=== PATIENT | male | born 1950 | race African-American/Black ===

== ENCOUNTER 2019-03-13 11:27 | Inpatient (IN) ==
[2019-03-13 11:56] LABS: BASO# 0.04 X1000 (0.0-0.2); BASO% 0.3 % (0.0-0.8); EOS# 0.06 X1000 (0.0-0.7); EOS% 0.4 % (0.0-10.0); HEMATOCRIT 45.8 % (42.0-52.0); HEMOGLOBIN 14.6 g/dL (14.0-18.0); IMM GRAN# 0.04 X1000 (0.0-0.04); IMM GRAN% 0.3 % (0.0-0.5); LYMPH# 2.72 X1000 (1.2-3.4); LYMPH% 17.6 % (20.5-51.1); MCH 25.7 PG (27-31); MCHC 31.9 g/dL (33-37); MCV 80.8 FL (81-99); MONO# 1.22 X1000 (0.11-0.59); MONO% 7.9 % (1.7-9.3); MPV 11.9 FL (7.4-10.4); NEUT# 11.37 X1000 (1.4-6.5); NEUT% 73.5 % (42.2-75.2); PLT 174 X1000 (130-400); RBC 5.67 XMIL (4.7-6.1); RDW 15.4 % (11.5-14.5); WBC 15.45 X1000 (4.8-10.8)
[2019-03-13 11:59] LABS: BE -0.4 mmoll (-3.0-3.0); BLOOD TYPE ARTERIAL; HCO3-(ACT) 24.3 mmoll (20.0-26.0); METHB 1.2 % (0.0-1.5); O2(CT) 18.1 mL/dL (15.0-23.0); PCO2(98.6) 34 mmHg (35-45); SAMPLE BLOOD; SAO2 89.3 % (95.0-100.0); pH(98.6) 7.44 (7.35-7.45)
--- NOTE | 2019-03-13 12:08 | EKG Report ---
Test Performed on : 03/13/2019 11:50:52 AM Test Reason : O2 sat 87% Blood Pressure : / mmHG Vent. Rate : 085 BPM Atrial Rate : 085 BPM P-R Int : 176 ms QRS Dur : 084 ms QT Int : 340 ms P-R-T Axes : -10 023 224 degrees QTc Int : 404 ms Sinus rhythm. with premature atrial complexes. in a pattern of bigeminy. T wave abnormality, consider lateral ischemia Abnormal ECG No previous ECGs available Unconfirmed Result
[2019-03-13 12:12] LABS: AGAP 10; ALBUMIN 3.9 g/dL (3.5-5.0); ALKALINE PHOSPHATASE 136 U/L (32-122); BUN 10 mg/dL (8-22); CHLORIDE 103 mmol/L (98-107); COSMO 273; CREATININE 1.1 mg/dL (0.7-1.2); ESTIMATED GFR > 60; GLUCOSE 106 mg/dL (70-104); GOT 19 U/L (10-34); GPT 26 U/L (10-44); POTASSIUM 3.8 mmol/L (3.5-5.1); SODIUM 137 mmol/L (136-145); TCO2 24 mmol/L (25-35); TOTAL PROTEIN 8.3 g/dL (6.3-8.3)
[2019-03-13 12:18] LABS: O2HB 85.9 % (95.0-99.0); PO2(98.6) 47 mmHg (60-100)
[2019-03-13 12:19] LABS: ALLEN TEST YES; MODALITY ROOM AIR
--- NOTE | 2019-03-13 13:30 | Diag Imaging Result Doc PS360 ---
EXAM: CHEST-2 VIEWS INDICATION: cough o2sat on ra 87% TECHNIQUE: 2 views COMPARISON: 02/21/2013 FINDINGS: Inspiration is suboptimal. There is subsegmental atelectasis and/or infiltrate at the lung bases, more prominent on the left. There is no discrete pleural fluid collection or pneumothorax. The cardiomediastinal silhouette and central vasculature are grossly unremarkable. IMPRESSION: Bibasilar subsegmental atelectasis and/or infiltrate, more prominent on the left. Electronically signed by Luis Mckinley 03/13/2019 1:28 PM
--- NOTE | 2019-03-13 13:37 | Diag Imaging Result Doc PS360 ---
EXAM: CT ANGIOGRM PULMONARY ARTERIES INDICATION: chest pain TECHNIQUE: This exam was performed using automated exposure control, adjustment of mA or kV according to patient size, and/or use of iterative reconstruction technique. Thin section axial images and 3-D MIPS were obtained. COMPARISON: 02/11/2013 FINDINGS: There is excessive respiratory motion artifact and the bolus is slightly suboptimal, which may obscure small pulmonary emboli. However, there is clearly a filling defect involving a small branch of the right pulmonary artery in the right lower lobe consistent with a small pulmonary embolus. There is a more questionable filling defect seen in a branch of the left pulmonary artery leading to the left lower lobe. There may be other small emboli that are obscured by motion artifact. However, the clot burden is probably light. There is no evidence of aortic dissection or aneurysm. There is no evidence of cardiomegaly. There are small shotty mediastinal lymph nodes. No significant lymphadenopathy is appreciated. There is subsegmental atelectasis at both lung bases, worse on the left. Superimposed pneumonia at the left lung base is also possible. It would also be difficult to exclude a pulmonary infarct among the consolidation at the left lung base. There is no pleural fluid collection and no pneumothorax. Limited views of the upper abdomen are essentially unremarkable. IMPRESSION: 1.Limited study due to motion artifact and suboptimal contrast bolus. However, there is at least one acute pulmonary embolism in a small branch of the right lower lobe and possibly others as well. 2.Bibasilar atelectasis with likely superimposed infection and/or pulmonary infarct at the left lung base. The findings were discussed with Nicholas Pham MD at 03/13/2019 1:34 PM and was acknowledged. Electronically signed by Luis Mckinley 03/13/2019 1:35 PM
[2019-03-13] MEDS ORDERED: LOVENOX 1 MG/KG SUBQ SCH (13:45)
[2019-03-13] MEDS ORDERED: LOVENOX SUBQ SCH (14:00)
[2019-03-13] MEDS ORDERED: ZOSYN 3.375 GM in NS 50 ML IV ONE (14:09)
[2019-03-13] MEDS ORDERED: TYLENOL PO ONE (14:10)
[2019-03-13] MEDS ORDERED: TYLENOL ONE (14:12)
[2019-03-13] MEDS ORDERED: ZOFRAN IV PRN (14:15)
[2019-03-13 14:32] LABS: INR 1.14; PROTIME 15.2 Seconds (11.0-16.0)
[2019-03-13 14:33] LABS: PTT 25.9 Seconds (22.3-41.8)
--- NOTE | 2019-03-13 15:51 | Extremity Venous Study ---
EXAM: Venous U/S Bilateral Legs INDICATION: swelling TECHNIQUE: COMPARISON: None. FINDINGS: There is poor compression and limited Doppler flow associated with the mid peroneal vein on the left consistent with DVT. The remaining deep venous system on the left as well as the right lower extremity deep venous system exhibit no discrete filling defects and there is normal Doppler flow, compressibility, and augmentation. The great saphenous veins appear to be patent bilaterally. IMPRESSION: DVT involving the peroneal vein on the left as described. Electronically signed by Luis Mckinley 03/13/2019 3:48 PM
[2019-03-13] MEDS: DUONEB (A & A) INH SCH ×3 (16:01→22:39)
[2019-03-13] MEDS: ZITHROMAX 500 MG/NS 500 MG/250 ML IVPB IV SCH (16:14)
--- NOTE | 2019-03-13 17:01 | HISTORY AND PHYSICAL ---
PRIMARY CARE PHYSICIAN: Dr. Jose L Broussard. CHIEF COMPLAINT: Shortness of breath and cough and congestion over the past few days that progressively worsened. HISTORY OF PRESENT ILLNESS: This is a 68-year-old male who presented to [facility] ER with complaints of shortness of breath, cough and congestion over the past few days, that have progressively worsened. He also stated that he had some abdominal pain around the left upper quadrant. He states this began after he went to [employer] yesterday and had a bowel movement after eating and the pain abdomen began and radiated around to his back. He then became short of breath. His workup in the emergency room showed a white blood cell count of 15.45. D-dimer was 3.16. We did a pulmonary arteriogram that showed limited study due to motion artifact, but however, there is at least 1 acute pulmonary embolism in a small branch of the right lower lobe and possibly others. Also noted some bibasilar atelectasis with likely superimposed infection and/or pulmonary artifact in the left lung base. He also had a white blood cell count of 15.45 and while in the emergency room, he did spike a temperature of 101.7 degrees and his O2 saturation on room air when he arrived was 87%. On 2 L via nasal cannula is now at 94%. So, he will be admitted for further evaluation and treatment. PAST MEDICAL HISTORY: Hypertension and hyperlipidemia. PAST SURGICAL HISTORY: None. FAMILY HISTORY: Reviewed and noncontributory. SOCIAL HISTORY: Currently lives with family. States that he was a former smoker but currently uses smokeless tobacco. Denies any alcohol or illicit drug use. ALLERGIES: He has no known drug allergies. HOME MEDICATIONS: Takes amlodipine/benazepril 10/40, 1 p.o. daily and simvastatin 40 mg p.o. at bedtime. LABORATORY DATA: Showed a white blood cell count of 15.45, hemoglobin 14.6, hematocrit 45.8, platelets of 174,000. PT and INR of 15.2 and 1.14 with a D-dimer of 3.16. ABG with a pH of 7.44, pCO2 34, PO2 47, bicarbonate 24.3, and this room air. Sodium 137, potassium 3.8, chloride 103, CO2 24, BUN of 10, creatinine 1.1 glucose 106. Plasma lactate of 0.9. Chest x-ray showed bibasilar subsegmental atelectasis and/or infiltrate, more prominent on the left. Pulmonary arteriogram showed an impression of limited study due to motion artifact and suboptimal contrast bolus. However, there was at least 1 acute pulmonary embolism in a small branch of the right lower lobe and possibly others as well. Bibasilar atelectasis with likely superimposed infection and/or pulmonary artifact at the left lung base. EKG showed sinus rhythm with PACs in a pattern of bigeminy at 85. REVIEW OF SYSTEMS: He was positive for a subjective fever, chills, body aches. Denied any blurred vision, dizziness. He denied any chest pain. He had a nonproductive cough, shortness of breath, left upper quadrant abdominal pain that radiated around to his back. Denied any nausea, vomiting, constipation, diarrhea, burning or hurting with urination. PHYSICAL EXAMINATION: On arrival he had a temperature of 98.3 degrees, pulse 84, respirations 20, blood pressure 147/82, and was saturating 87% on room air. Currently he is saturating 94% on 2 L. He did spike a fever in the emergency room of 101.7 also. GENERAL: This is a 68-year-old male who is lying in the bed. Answers questions appropriately. HEENT: Normocephalic, atraumatic. Normal ENT inspection. Oropharynx and nares are clear. EYES: Pupils are equal, round, and reactive to light accommodation. Extraocular movements are intact. NECK: Normal inspection, normal range of motion. LUNGS: With crackles and decreased breath sounds bilaterally. Equal lung expansion. Chest wall movement noted. O2 via nasal cannula currently in use. HEART: Regular rate and rhythm. No murmurs, rubs, or gallops. ABDOMEN: Soft, nontender, nondistended. Bowel sounds are present in all four quadrants. MUSCULOSKELETAL: He had 5/5 strength x4 extremities. NEUROLOGICAL: The cranial nerves 2-12 appear grossly intact. ASSESSMENT: 1. Acute pulmonary emboli. 2. Bilateral pneumonia. 3. Leukocytosis. 4. Acute respiratory failure secondary to #1 and #2. 5. Hypertension history. PLAN: 1. He is admitted to the medical unit at [facility], placed on telemetry, O2 per protocol. Healthy heart diet. We will do a hypercoagulable workup. Blood cultures x 2 are pending. We will do serial plasma lactate. 2. He is on DuoNeb q.4 hours, Rocephin 1 gram IV q.24, azithromycin 500 IV q.24. 3. Continue home medications as previously identified. Place on Lovenox 1 mg/kg subcutaneous q.12 hour. 4. Further orders after seen by attending. Dictated by HUMZA Willard for Sharan Dominguez MD cc: HUMZA Willard MD Wayne E. Thomas, MD
[2019-03-13] MEDS: ZOCOR PO SCH (21:39)
[2019-03-13] MEDS: ROCEPHIN 1 GM in NS 50 ML IV SCH (21:40)
[2019-03-14] MEDS ORDERED: NORCO-7.5 PO PRN (01:18)
[2019-03-14] MEDS: LOVENOX SUBQ SCH ×2 (01:54→14:45)
[2019-03-14 02:42] LABS: BILIRUBIN URINE NEGATIVE (NEGATIVE); BLOOD URINE NEGATIVE (NEGATIVE); CLARITY CLEAR (CLEAR); COLOR YELLOW; GLUCOSE URINE NEGATIVE (NEGATIVE); KETONE URINE NEGATIVE (NEGATIVE); LEUKOCYTES URINE NEGATIVE (NEGATIVE); NITRITE URINE NEGATIVE (NEGATIVE); PH URINE 6.5; PROTEIN URINE TRACE mg/dL (NEGATIVE); SP GRAVITY URINE 1.015; UROBILINOGEN URINE 1 mg/dL
[2019-03-14 02:48] LABS: URINE BACTERIA 1+ /HFP; URINE EPITHELIAL CELLS <10 /HPF (<10); URINE RBC <10 /HPF (<10); URINE WBC <10 /HPF (<10)
[2019-03-14 02:49] LABS: URINE SOURCE CLEAN CATCH
[2019-03-14] MEDS: DUONEB (A & A) INH SCH ×6 (04:09→22:39)
[2019-03-14 06:54] LABS: BASO# 0.04 X1000 (0.0-0.2); BASO% 0.3 % (0.0-0.8); EOS# 0.03 X1000 (0.0-0.7); EOS% 0.2 % (0.0-10.0); HEMATOCRIT 41.4 % (42.0-52.0); HEMOGLOBIN 12.9 g/dL (14.0-18.0); IMM GRAN# 0.03 X1000 (0.0-0.04); IMM GRAN% 0.2 % (0.0-0.5); LYMPH# 3.37 X1000 (1.2-3.4); LYMPH% 24.6 % (20.5-51.1); MCH 25.4 PG (27-31); MCHC 31.2 g/dL (33-37); MCV 81.5 FL (81-99); MONO% 15.3 % (1.7-9.3); MPV 11.8 FL (7.4-10.4); NEUT# 8.13 X1000 (1.4-6.5); NEUT% 59.4 % (42.2-75.2); PLT 151 X1000 (130-400); RBC 5.08 XMIL (4.7-6.1); RDW 15.3 % (11.5-14.5)
[2019-03-14 07:27] LABS: AGAP 11; BUN 8 mg/dL (8-22); CALCIUM 8.5 mg/dL (8.8-10.2); CHLORIDE 102 mmol/L (98-107); COSMO 272; ESTIMATED GFR > 60; GLUCOSE 99 mg/dL (70-104); POTASSIUM 3.9 mmol/L (3.5-5.1); SODIUM 137 mmol/L (136-145); TCO2 25 mmol/L (25-35)
[2019-03-14] MEDS ORDERED: NORVASC PO SCH (09:00)
[2019-03-14] MEDS ORDERED: LOTENSIN PO SCH (09:00)
[2019-03-14] MEDS: LOTENSIN PO SCH (10:25)
[2019-03-14] MEDS: NORVASC PO SCH (10:25)
[2019-03-14] MEDS: ZITHROMAX 500 MG/NS 500 MG/250 ML IVPB IV SCH (14:45)
[2019-03-14] MEDS: ROCEPHIN 1 GM in NS 50 ML IV SCH (21:06)
[2019-03-14] MEDS: ZOCOR PO SCH (21:06)
[2019-03-15] MEDS: LOVENOX SUBQ SCH ×2 (03:30→14:29)
[2019-03-15] MEDS: DUONEB (A & A) INH SCH ×6 (04:03→23:00)
[2019-03-15 06:44] LABS: BASO# 0.05 X1000 (0.0-0.2); BASO% 0.5 % (0.0-0.8); EOS# 0.27 X1000 (0.0-0.7); EOS% 2.6 % (0.0-10.0); HEMATOCRIT 40.8 % (42.0-52.0); HEMOGLOBIN 12.8 g/dL (14.0-18.0); IMM GRAN# 0.02 X1000 (0.0-0.04); IMM GRAN% 0.2 % (0.0-0.5); LYMPH# 2.44 X1000 (1.2-3.4); LYMPH% 23.1 % (20.5-51.1); MCH 25.6 PG (27-31); MCHC 31.4 g/dL (33-37); MCV 81.6 FL (81-99); MONO# 1.61 X1000 (0.11-0.59); MONO% 15.2 % (1.7-9.3); MPV 11.3 FL (7.4-10.4); NEUT# 6.19 X1000 (1.4-6.5); NEUT% 58.4 % (42.2-75.2); PLT 170 X1000 (130-400); RDW 15.2 % (11.5-14.5); WBC 10.58 X1000 (4.8-10.8)
[2019-03-15 07:25] LABS: AGAP 8; BUN 8 mg/dL (8-22); CALCIUM 8.9 mg/dL (8.8-10.2); CHLORIDE 103 mmol/L (98-107); COSMO 274; CREATININE 0.9 mg/dL (0.7-1.2); ESTIMATED GFR > 60; GLUCOSE 103 mg/dL (70-104); POTASSIUM 3.9 mmol/L (3.5-5.1); SODIUM 138 mmol/L (136-145); TCO2 27 mmol/L (25-35)
--- NOTE | 2019-03-15 07:46 | PROGRESS NOTE ---
DATE: 03/15/2019 SUBJECTIVE: Patient has no major complaints, feels improved. OBJECTIVE: Vital signs: Blood pressure was 131/70. Heart rate of 72. Respiratory rate 20. Temperature 99.7 degrees. Cardiovascular: Regular rate and rhythm. Pulmonary: Bilateral breath sounds diminished at bases. GI: Soft. Nontender, nondistended. Bowel sounds are positive. LABORATORY DATA: White count 13. Hemoglobin and hematocrit 12 and 41. Platelets 151,000. Basic was normal. PROBLEM LIST: 1. DVT/PE. Continue Lovenox. Will anticipate transition to Xarelto and follow closely. 2. Pneumonia. Will continue Rocephin, azithromycin, and pulmonary toilet and monitor. 3. Hypertension. Continue regular medication. 4. Acute hypoxic respiratory failure. Will continue O2 and try to wean as tolerated DISPOSITION: Pending clinical time. We will continue to follow closely. cc: Sharan Dominguez MD
[2019-03-15] MEDS ORDERED: ZITHROMAX 500 MG/NS 500 MG/250 ML IVPB IV SCH (08:39)
[2019-03-15] MEDS: ZITHROMAX PO SCH (09:22)
[2019-03-15] MEDS: NORVASC PO SCH (09:22)
[2019-03-15] MEDS: LOTENSIN PO SCH (09:23)
[2019-03-15] MEDS: ZOCOR PO SCH (19:54)
[2019-03-15] MEDS: ROCEPHIN 1 GM in NS 50 ML IV SCH (19:55)
--- NOTE | 2019-03-15 20:11 | PROGRESS NOTE ---
DATE: 03/15/2019 SUBJECTIVE: Patient notes that overall he is feeling better. His cough is improving. His shortness of breath is improving, although he is still coughing up blood-tinged sputum on a regular basis. PHYSICAL EXAMINATION: Vital Signs: Temperature 98.9 degrees, pulse 78, respiratory rate 18, BP 147/73. General: Patient is awake, alert. He is sitting up in the chair, preparing to eat breakfast. HEENT: Normocephalic. Neck: Supple. Cardiovascular: Regular rate. Chest: Clear. Abdomen: Soft. Extremities: Moves all extremities. Neurologic: No focal changes. Skin: Warm, dry. No rashes. ASSESSMENT: 1. Acute pulmonary emboli. 2. Bilateral pneumonia with blood-tinged sputum. 3. Leukocytosis. 4. Acute respiratory failure. PLAN: Will continue Lovenox, Rocephin and azithromycin. Concerned about switching to Xarelto currently with his blood-tinged sputum, although it is likely secondary to his pneumonia, but will follow. cc: Luis F Rubin MD
[2019-03-16] MEDS: ZOCOR PO SCH (01:06)
[2019-03-16] MEDS: LOVENOX SUBQ SCH (01:24)
[2019-03-16] MEDS: DUONEB (A & A) INH SCH ×3 (04:29→10:40)
[2019-03-16 07:43] VITALS: BP 123/75
[2019-03-16] MEDS: ZITHROMAX PO SCH (09:46)
[2019-03-16] MEDS: NORVASC PO SCH (09:46)
[2019-03-16] MEDS: LOTENSIN PO SCH (09:46)
--- NOTE | 2019-03-17 12:05 | DISCHARGE SUMMARY ---
ADMISSION DATE: 03/13/2019 DISCHARGE DATE: 03/16/2019 DIAGNOSES: 1. Acute pulmonary emboli. 2. Bilateral pneumonia with hemoptysis, resolved. 3. Leukocytosis resolved. 4. Acute respiratory failure resolved. 5. Left peroneal deep venous thrombosis. DIAGNOSTICS: 1. Chest x-ray revealed bibasilar subsegmental atelectasis and/or infiltrate, more prominent on the left. 2. Pulmonary arteriogram revealed at least 1 pulmonary embolism in a small branch of the right lower lobe, and possibly others. 3. Bibasilar atelectasis with likely superimposed infection at the left lung base. 4. Bilateral lower extremity Doppler. 5. DVT involving the peroneal vein on the left. MICROBIOLOGY: Blood cultures x2 revealed no growth after 48 hours. HOSPITAL COURSE: Mr. Carson presented to the emergency room complaining of shortness of breath, cough and congestion over a few days prior to presenting to the emergency room. He was found to have an elevated D-dimer. Subsequent CTA pulmonary revealed pulmonary embolus, and lower extremity Doppler revealed left peroneal DVT. He was initially started on Lovenox 1 mg/kg b.i.d. He was transitioned over to Xarelto after linotype worker did verify his affordability. He was noted to have pneumonia on his chest x-ray for which he was given antibiotic coverage of Rocephin and azithromycin. He has been transitioned over to Omnicef and azithromycin on discharge. He did have some hemoptysis or blood-tinged sputum. This has cleared, and today his sputum has been clear prior to discharge. DISCHARGE VITAL SIGNS: Blood pressure 123/75 with a heart rate of 70, respirations 14, temperature 97.9 degrees oral with room air saturations of 96%. DISCHARGE PHYSICAL EXAMINATION: Cardiovascular: Regular rate and rhythm. S1 and S2 appreciated. He has no lower extremity edema. No murmurs, rubs, or gallops. Calves are nontender bilateral with peripheral pulses palpable x4 extremities. Pulmonary: Breath sounds are clear with no increased work of breathing noted. Chest rises and falls symmetrically with respiration. Chest wall is nontender to palpation. Gastrointestinal: Abdomen is soft, nontender, and nondistended with bowel sounds in all 4 quadrants. : No CVA or suprapubic tenderness. Neurologic: Alert and oriented x3. Skin: Warm and dry. DISCHARGE MEDICATIONS: 1. Azithromycin 250 mg p.o. daily x5 days. 2. Omnicef 300 mg p.o. b.i.d. x7 days. 3. Xarelto 15 mg p.o. b.i.d. for 21 days then Xarelto 20 mg p.o. daily. 4. Zyrtec 10 mg p.o. daily. 5. Flonase nasal spray 1 spray to nostrils daily. 6. Amlodipine/benazepril 10/40 1 p.o. daily. 7. Simvastatin 40 mg p.o. at bedtime [facility] did verify with Pharmacy that they did receive a prescription for 15 mg p.o. b.i.d. for 21 days, and they do have a 20 mg Xarelto p.o. daily on hold to start after completion of 15 mg b.i.d.. FOLLOW UP: Dr. Jose L Broussard is the primary care provider. He is to call to schedule an appointment in the next 2 weeks. He has been instructed to call to be seen sooner or return to the ER for any syncope, dizziness, chest pain, palpitations, increasing shortness of breath, hemoptysis, increasing cough, PND, orthopnea, temperature greater than 101, any nausea, vomiting, diarrhea, constipation, black or bloody vomitus or stools, hematuria, dysuria, frequency, or urgency. He is being discharged home in stable condition with family members. TIME SPENT: This is a greater than 30 minute discharge. Dictated by HUMZA Marlow for Luis F Rubin MD cc: HUMZA Marlow MD [facility]
--- NOTE | 2019-03-17 15:39 | DISCHARGE SUMMARY ---
ADMISSION DATE: 03/13/2019 DISCHARGE DATE: 03/16/2019 Patient seen and examined by myself. Full note dictated and discussed with nurse practitioner. On discharge, patient is awake, alert. He is in no distress. He has tolerated the blood thinner very well. He does have pneumonia. He was able to wean off his oxygen. We transitioned him over to Xarelto. We will discharge him home with antibiotics. cc: Luis F Rubin MD
== END 2019-03-16 12:10 | disposition home or self-care (01) | DRG 175 ==
LOC: P.ED 11:27 → OBSVTOIN 14:03 → P.MEDSURG 14:03 → SUATTDRO 14:03 → INTOOBSV 14:03
PROVIDERS: ATTEND Family Medicine